=== PATIENT | female | born 1990 | race Caucasian/White ===

== ENCOUNTER 2018-05-16 16:54 | Emergency (ER) | payer OTHER ==
[2018-05-16 17:29] LABS: BASO # 0.1 10^3/uL (0.0-0.2); BASO % 0.5 % (0.0-1.0); EOS # 0.1 10^3/uL (0.0-0.50); EOS % 0.4 % (0.0-3.0); HEMATOCRIT 40.9 % (36.0-47.0); HEMOGLOBIN 12.9 g/dl (12.0-15.5); IMMATURE GRANULOCYTE % 0.5 % (0-3.0); LYMPH # 1.6 10^3/uL (1.5-6.5); LYMPH % 12.6 % (24.0-44.0); MEAN CORPUSCULAR HEMOGLOBIN 24.2 pg (27.0-33.0); MEAN CORPUSCULAR HGB CONC 31.5 g/dl (32.0-36.5); MEAN CORPUSCULAR VOLUME 76.6 fl (80.0-96.0); MONO # 0.8 10^3/uL (0.0-0.8); MONO % 6.3 % (0.0-5.0); NEUTROPHILS # 10.3 10^3/uL (1.8-7.7); NEUTROPHILS % 79.7 % (36.0-66.0); PLATELET COUNT, AUTOMATED 308 10^3/uL (150-450); RED BLOOD COUNT 5.34 10^6/uL (4.00-5.40); RED CELL DISTRIBUTION WIDTH 14.2 % (11.5-14.5); WHITE BLOOD COUNT 12.9 10^3/uL (4.0-10.0)
[2018-05-16 17:46] LABS: INR 1.19; PARTIAL THROMBOPLASTIN TIME 32.4 SECONDS (25.4-37.6); PROTHROMBIN TIME 15.3 SECONDS (12.1-14.4)
[2018-05-16 17:49] LABS: ALBUMIN 3.4 GM/DL (3.2-5.2); ALBUMIN/GLOBULIN RATIO 0.87 (1.00-1.93); ALKALINE PHOSPHATASE 88 U/L (45-117); ALT/SGPT 23 U/L (12-78); AMYLASE 30 U/L (25-115); ANION GAP 10 MEQ/L (8-16); AST/SGOT 17 U/L (7-37); BILIRUBIN,DIRECT 0.1 MG/DL (0.0-0.2); BILIRUBIN,TOTAL 0.5 MG/DL (0.2-1.0); BLOOD UREA NITROGEN 12 MG/DL (7-18); CALCIUM LEVEL 8.4 MG/DL (8.5-10.1); CARBON DIOXIDE LEVEL 25 MEQ/L (21-32); CHLORIDE LEVEL 103 MEQ/L (98-107); CREATININE FOR GFR 0.97 MG/DL (0.55-1.30); GLOMERULAR FILTRATION RATE > 60.0 (>60); GLUCOSE, FASTING 114 MG/DL (70-100); LIPASE 74 U/L (73-393); POTASSIUM SERUM 3.8 MEQ/L (3.5-5.1); SODIUM LEVEL 138 MEQ/L (136-145); TOTAL PROTEIN 7.3 GM/DL (6.4-8.2)
[2018-05-16] MEDS: NS 1,000 ML IV (18:01)
[2018-05-16] MEDS: PANTOPRAZOLE 40MG INJ (PROTONIX) (C9113) IV (18:02)
[2018-05-16] MEDS: KETOROLAC 30 MG/ML VIAL (J1885) IV (18:03)
[2018-05-16] MEDS: ONDANSETRON 4MG/2ML VIAL (J2405) IV (18:04)
[2018-05-16] MEDS: ACETAMINOPHEN 325 MG TAB PO (18:05)
[2018-05-16 18:07] LABS: CONTROL LINE HCG INT CTR LINE PRESENT; HCG, SERUM QUALITATIVE NEGATIVE (NEGATIVE)
== END 2018-05-16 19:07 | disposition home or self-care (01) ==
LOC: M ED 16:54
DX: K52.9 Noninfective gastroenteritis and colitis, unspecified (principal)
CPT/HCPCS: C9113

== ENCOUNTER 2018-05-18 17:53 | Emergency (ER) | payer OTHER ==
[2018-05-18 18:59] LABS: INFLUENZA A AMPLIFICATION NEGATIVE (NEGATIVE); INFLUENZA B AMPLIFICATION NEGATIVE (NEGATIVE)
== END 2018-05-18 19:26 | disposition home or self-care (01) ==
LOC: M ED 17:53
DX: J18.1 Lobar pneumonia, unspecified organism (principal); Z88.0 Allergy status to penicillin
CPT/HCPCS: 71046

== ENCOUNTER 2019-05-18 05:52 | Emergency (ER) | payer OTHER ==
[~2019-05-18] VITALS: Ht 165.1 cm; Wt 112.3 kg
[~2019-05-18 05:52] MED LIST: AVEL1TAB3 PO; MOTR200T44 PO; PERCOCET PO; PROAAER10 INH; REGL10TA6 PO; TGTSUS3 PO
[2019-05-18] MEDS ORDERED: [UNRECOGNIZED DRUG - OTHER] PO (05:56)
[2019-05-18] MEDS ORDERED: KETOROLAC 60 MG/2 ML VIAL (J1885) IM ONE (06:15)
[2019-05-18] MEDS ORDERED: ZITHTAB PO (08:13)
--- NOTE | 2019-05-18 08:22 | REP ---
Two-view chest: 05/18/2019. Indication: Dyspnea. Comparison: 05/18/2018. Findings: There is increased air space consolidation of the left lower lobe. Possible small right lower lobe consolidation is additionally noted. There is no pleural effusion or pneumothorax. The cardiomediastinal silhouette is unremarkable. Impression: Left greater than right basilar pneumonia. Upon treatment completion, repeat chest x-ray to document resolution is recommended. Electronically Signed by Lucio Cruz DO 05/18/2019 08:12 A
[2019-05-18 08:32] VITALS: BP 113/61
--- NOTE | 2019-05-19 10:20 | ED PDOC ---
Post-Departure Follow-Up certified letter sent to pt re radiology recommendations on cxr. Deya Claudio MD May 19, 2019 10:20
== END 2019-05-18 08:34 | disposition home or self-care (01) ==
LOC: M ED 05:52
DX: J18.9 Pneumonia, unspecified organism (principal); Z88.0 Allergy status to penicillin
CPT/HCPCS: 71046; 96372; 99283; J1885

== ENCOUNTER 2019-08-25 18:22 | Emergency (ER) | payer OTHER ==
[~2019-08-25] VITALS: Ht 170.2 cm; Wt 113.6 kg
[~2019-08-25 18:22] MED LIST changes: +ZITHTAB PO; +[UNRECOGNIZED DRUG - OTHER] PO
--- NOTE | 2019-08-25 19:27 | REP ---
LEFT ANKLE, FOUR VIEWS: Four views of the left ankle performed. There is a tiny avulsion fracture of the lateral malleolus. There is moderate soft tissue swelling laterally. I see no other evidence of acute fracture, dislocation or intrinsic bone disease. The ankle mortise is anatomic. Electronically Signed by Nick Palomo MD 08/25/2019 07:31 P
--- NOTE | 2019-08-25 19:28 | REP ---
LEFT FOOT, FOUR VIEWS: There is no evidence of an acute fracture, dislocation or intrinsic bone disease. There is mild posterior calcaneal spurring. IMPRESSION: No fracture or dislocation. Electronically Signed by Nick Palomo MD 08/25/2019 07:30 P
[2019-08-25] MEDS ORDERED: IBUP80TA PO (21:06)
[2019-08-25] MEDS: IBUPROFEN 800 MG TAB PO ONE (21:19)
[2019-08-25 21:21] VITALS: BP 142/69
== END 2019-08-25 21:26 | disposition home or self-care (01) ==
LOC: M ED 18:22
DX: S93.402A Sprain of unspecified ligament of left ankle, initial encounter (principal); S82.62XA Displaced fracture of lateral malleolus of left fibula, initial encounter for closed fracture; X50.9XXA Other and unspecified overexertion or strenuous movements or postures, initial encounter; V58.4XXA Person boarding or alighting a pick-up truck or van injured in noncollision transport accident, initial encounter; Y92.89 Other specified places as the place of occurrence of the external cause; Y93.89 Activity, other specified; Y99.8 Other external cause status; Z88.0 Allergy status to penicillin

== ENCOUNTER 2021-09-08 16:31 | Emergency (ER) | payer OTHER ==
[~2021-09-08 16:31] MED LIST changes: +ACET-1439 PO; +IBUP80TA PO; -TGTSUS3 PO
[2021-09-08] MEDS ORDERED: ACETAMINOPHEN 325 MG TAB PO ONE (18:00)
[2021-09-08 19:43] VITALS: BP 144/86
== END 2021-09-08 19:47 | disposition home or self-care (01) ==
LOC: M ED 16:31
DX: J09.X2 Influenza due to identified novel influenza A virus with other respiratory manifestations (principal); Z88.0 Allergy status to penicillin

== ENCOUNTER 2022-11-28 12:53 | Emergency (ER) | payer OTHER ==
[~2022-11-28] VITALS: Ht 165.1 cm; Wt 108.1 kg
[2022-11-28 12:55] VITALS: BP 122/82; TEMP 98.7; O2SAT 98
[2022-11-28] MEDS ORDERED: NORCO, ANEXSIA 5/325MG TABLET (HYDROcodone/ACETAMINOPHEN) PO ONE (14:05)
[2022-11-28] MEDS ORDERED: IBUPROFEN 800 MG TAB PO ONE (15:05)
[2022-11-28] MEDS ORDERED: HYDR-3713 PO (15:08)
== END 2022-11-28 15:23 | disposition home or self-care (01) ==
LOC: M ED 12:53
DX: S22.42XA Multiple fractures of ribs, left side, initial encounter for closed fracture (principal); V86.65XA Passenger of 3- or 4- wheeled all-terrain vehicle (ATV) injured in nontraffic accident, initial encounter; Z88.0 Allergy status to penicillin

== ENCOUNTER → 2024-04-05 | Outpatient (REF) | payer OTHER ==
[~2024-04-05] MED LIST changes: +HYDR-3713 PO
[2024-04-05 13:54] LABS: BASO # 0.1 10^3/uL (0.0-0.2); BASO % 0.7 % (0.0-1.0); EOS # 0.2 10^3/uL (0.0-0.5); EOS % 2.5 % (0.0-3.0); HEMATOCRIT 39.2 % (36.0-47.0); HEMOGLOBIN 11.6 g/dl (12.0-15.5); LYMPH # 2.5 10^3/uL (1.5-5.0); LYMPH % 28.7 % (24.0-44.0); MEAN CORPUSCULAR HEMOGLOBIN 21.9 pg (27.0-33.0); MEAN CORPUSCULAR HGB CONC 29.6 g/dl (32.0-36.5); MEAN CORPUSCULAR VOLUME 74.1 fl (80.0-96.0); MONO # 0.6 10^3/uL (0.0-0.8); MONO % 7.3 % (2.0-8.0); NEUTROPHILS # 5.2 10^3/uL (1.5-8.5); NEUTROPHILS % 60.2 % (36.0-66.0); PLATELET COUNT, AUTOMATED 427 10^3/uL (150-450); RED BLOOD COUNT 5.29 10^6/uL (4.00-5.40); WHITE BLOOD COUNT 8.6 10^3/uL (4.0-10.0)
[2024-04-05 13:55] LABS: FREE T4 1.39 NG/DL (0.89-1.76); THYROID STIMULATING HORMONE 1.427 uIU/ML (0.55-4.78)
[2024-04-05 13:56] LABS: ALBUMIN 3.7 G/DL (3.2-5.2); ALKALINE PHOSPHATASE 80 U/L (46-116); ALT/SGPT 15 U/L (7.0-40); AST/SGOT 12 U/L (<34); BILIRUBIN,TOTAL 0.4 MG/DL (0.3-1.2); BLOOD UREA NITROGEN 17 MG/DL (9-23); CALCIUM LEVEL 9.6 MG/DL (8.5-10.1); CARBON DIOXIDE LEVEL 26 MMOL/L (20-31); CHLORIDE LEVEL 107 MMOL/L (98-107); CHOLESTEROL LEVEL 173 MG/DL (<200); CHOLESTEROL RISK RATIO 4.73 (<5); CREATININE FOR GFR 0.86 MG/DL (0.55-1.30); GLOMERULAR FILTRATION RATE > 60.0 (>60); GLUCOSE, FASTING 89 MG/DL (60-100); HDL CHOLESTEROL 36.5 MG/DL (>40); LDL CHOLESTEROL 110.9 MG/DL (<100); NON-HDL-C 136.5 MG/DL; POTASSIUM SERUM 4.1 MMOL/L (3.5-5.1); SODIUM LEVEL 139 MMOL/L (136-145); TOTAL 25(OH) VITAMIN D 82.9 NG/ML (20.0-100.0); TOTAL PROTEIN 7.1 G/DL (5.7-8.2); TRIGLYCERIDES LEVEL 128 MG/DL (<150)
[2024-04-05 14:08] LABS: HEMOGLOBIN A1c 5.1 % (4.0-6.0)
== END ==
LOC: M LABDRWAD 13:14 → M LAB REF 13:14
PROVIDERS: ATTEND Nurse Practitioner Family
DX: E66.9 Obesity, unspecified (principal)

== ENCOUNTER → 2024-04-07 | Outpatient (CLI) | payer OTHER ==
[~2024-04-07] MED LIST changes: +GASTROGRAFIN SOLUTION 30ML As Ordered ONE; +ISOVUE-370 76% 100ML VIAL As Ordered ONE
== END ==
LOC: M RAD 08:06
PROVIDERS: ATTEND Registered Nurse
DX: R19.02 Left upper quadrant abdominal swelling, mass and lump (principal); K76.89 Other specified diseases of liver
CPT/HCPCS: 74177; Q9963; Q9967

== ENCOUNTER → 2024-05-01 | Outpatient (CLI) | payer OTHER ==
[~2024-05-01] MED LIST changes: -GASTROGRAFIN SOLUTION 30ML As Ordered ONE; -ISOVUE-370 76% 100ML VIAL As Ordered ONE
== END ==
LOC: M WHC 08:36
PROVIDERS: ATTEND Nurse Practitioner Family
DX: R93.89 Abnormal findings on diagnostic imaging of other specified body structures (principal); K80.20 Calculus of gallbladder without cholecystitis without obstruction; K76.89 Other specified diseases of liver

== ENCOUNTER → 2025-05-23 | Outpatient (REF) | payer OTHER ==
[~2025-05-23] MED LIST changes: +ACET-897 PO
[2025-05-29 14:01] LABS: HPV APTIMA Not Detected (Not Detected)
== END ==
LOC: M LAB REF 17:02
PROVIDERS: ATTEND Nurse Practitioner Family
DX: Z01.419 Encounter for gynecological examination (general) (routine) without abnormal findings (principal)